=== PATIENT | female | born 1995 | race Caucasian/White ===

== ENCOUNTER 2016-04-27 09:37 | Emergency (ER) | payer OTHER ==
[~2016-04-27] VITALS: Ht 167.6 cm; Wt 128.8 kg
--- NOTE | 2016-04-27 10:35 | ED GI/GU/ABDOMINAL COMPLAINT ---
History of Present Illness General Chief Complaint: Female Urogenital Problems Stated Complaint: APPROX 5 WEEKS PREG, CRAMPING/SPOTTING Source: patient Exam Limitations: no limitations Vital Signs & Intake/Output Vital Signs & Intake/Output Vital Signs Date Time Temp Pulse Resp B/P Pulse O2 O2 Flow FiO2 Ox Delivery Rate 04/27 1339 98.8 83 18 132/69 100 Room Air 04/27 0942 98.9 107 20 136/72 100 Room Air Allergies Coded Allergies: MDX - PCN (penicillin) (PCN (PENICILLIN)) (HIVES 03/27/13) Triage Note: PT STATES APROX 5 WEEKS . STATES SHE HAS BEEN SPOTTING FOR THE PAST COUPLE DAYS. TODAY SHE HAD PAIN WITH SPOTTING. HAS A SCHEDULED OB APPT FOR SATURDAY. Triage Nurses Notes Reviewed? yes ? Y Is pt currently ? No HPI: This patient is a 21-year-old G1A0P0 female who presented to the emergency department today for evaluation of vaginal spotting. The patient reported that she took a home test and believes that she is approximately 5-6 weeks gestation. She has not had her initial visit with her TELEVISION HOST. She is scheduled to see Dr. Dahl on Saturday. The patient reported that she has been having some bilateral groin pain cramping. She reported that it is worse in the morning and gets up to a 7 out of 10. She reported that sometimes it subsides in the afternoon. Currently it is a 2 out of 10. She reported that it feels like, "a PERIOD Cramp." She reported that her last period was in February. The patient reported that she started having some vaginal spotting yesterday. She reported that she is only spotting a little bit and only has to use a panty liner. The patient reported some nausea. No vomiting, fevers, chills, chest pain, difficulty breathing, urinary burning, urgency, frequency, or blood in urine. (MANNIE PARRISH PA-C) Past History Travel History Traveled to [place] past 21 day No Medical History Any Pertinent Medical History? see below for history Surgical History Surgical History: non-contributory Psychosocial History What is your primary language Irish Tobacco Use: Never used ETOH Use: denies use Illicit Drug Use: denies illicit drug use Family History Hx Contributory? No (MANNIE PARRISH PA-C) Review of Systems Review of Systems Constitutional: Reports: no symptoms. EENTM: Reports: no symptoms. Respiratory: Reports: no symptoms. Cardiovascular: Reports: no symptoms. GI: Reports: see HPI. Genitourinary: Reports: see HPI. Musculoskeletal: Reports: no symptoms. Skin: Reports: no symptoms. Neurological/Psychological: Reports: no symptoms. All Other Systems: Reviewed and Negative (MANNIE PARRISH PA-C) Physical Exam Physical Exam Gastrointestinal: normal bowel sounds, soft, non-tender, no organomegaly, NO REBOUND OR GUARDING. nONDISTENDED. nO MASSES APPRECIATED Comments: Well-developed well-nourished person in no acute distress HEENT: Normal EENT exam, moist mucous membranes Neck: Supple, no lymphadenopathy Back: Normal gait. No CVA tenderness Cardiovascular: Regular rate and rhythm with no murmurs Respiratory: No respiratory distress. Speaking in full sentences Extremity: Normal and equal pulses Neuro: Alert oriented x3, cranial nerves II through XII grossly intact. Skin: No appreciable rash on exposed skin, skin is warm and dry. Psych: Mood and affect is normal Core Measures ACS in differential dx? No Severe Sepsis Present: No Septic Shock Present: No (MANNIE PARRISH PA-C) Progress Differential Diagnosis: appendicitis, biliary colic, bowel obstruction, colon cancer, cholecystitis, diverticulitis, ectopic , endometritis, gastritis, hepatitis, ischemic bowel, inflamm bowel dis, intrauterine , kidney stone, ovarian cyst, ovarian torsion, pancreatitis, PID/cervicitis, PUD/ GERD, threatened AB, UTI/pyelo Plan of Care: Orders Procedure Date/time Status PARTIAL THROMBOPLASTIN TIME 04/27 1013 Complete PROTHROMBIN TIME 04/27 1013 Complete HUMAN BETA HCG TITRE 04/27 1013 Complete COMPREHENSIVE METABOLIC PANEL 04/27 1013 Complete CBC WITHOUT DIFFERENTIAL 04/27 1013 Complete TYPE & SCREEN (NOT X-MATCH) 04/27 1013 Complete URINE 04/27 0946 Complete URINALYSIS 04/27 0946 Complete Laboratory Tests 04/27/16 1039: Anion Gap 11, Estimated GFR > 60, BUN/Creatinine Ratio 11.7, Glucose 82, Calcium 9.8, Total Bilirubin 0.7, AST 19, ALT 35, Alkaline Phosphatase 119, Total Protein 7.5, Albumin 4.1, Globulin 3.4, Albumin/Globulin Ratio 1.2, Beta HCG, Quant 86568.0, PT 13.5 H, INR 1.29 H, APTT 31, CBC w Diff NO MAN DIFF REQ, RBC 4.53, MCV 83.8, MCH 27.9, RDW 13.3, MPV 6.8 L, Gran % 74.0, Lymphocytes % 19.2 L, Monocytes % 5.1, Eosinophils % 1.3, Basophils % 0.4, Absolute Granulocytes 8.3 H, Absolute Lymphocytes 2.2, Absolute Monocytes 0.6, Absolute Eosinophils 0.1, Absolute Basophils 0, PUBS MCHC 33.3, Urine Color YEL, Urine Clarity CLEAR, Urine pH 6.0, Ur Specific [place] >= 1.030, Urine Protein NEG, Urine Ketones NEG , Urine Nitrite NEG, Urine Bilirubin NEG, Urine Urobilinogen 0.2, Ur Leukocyte Esterase NEG, Ur Microscopic EXAM NOT REQUIRED, Urine Hemoglobin NEG, Urine Glucose NEG, Urine Test POSITIVE Diagnostic Imaging: Viewed by Me: Ultrasound. Discussed w/RAD: Ultrasound. Radiology Impression: PATIENT: SOHAM GONG PRESENT AGE: 21 PATIENT ACCOUNT NO: [id number] : 96 LOCATION: [facility] ORDERING PHYSICIAN: MANNIE PARRISH PA-C SERVICE DATE: 04/27/16 EXAM TYPE: US - US-ECTOPIC DX EXAMINATION: US ECTOPIC DIAGNOSIS CLINICAL INFORMATION: Approximately 5 weeks gestation. Vaginal spotting. Assess for ectopic . COMPARISON: None TECHNIQUE: Transabdominal and transvaginal pelvic sonography was performed. FINDINGS: A single intrauterine is demonstrated. heart rate is 147 bpm. Yolk sac is demonstrated. The crown-rump length measures 0.92 cm, corresponding to a gestational age 7 weeks, 2 days (estimated date of delivery 12/12/2016). There is a small subchorionic hemorrhage adjacent to the gestational sac. The right ovary measures 2.7 x 1.6 x 1.8 cm. The left ovary measures 3.4 x 2.3 x 2.8 cm. No suspicious ovarian or adnexal lesion. Internal Doppler flow is demonstrated within the bilateral ovaries. No free fluid within the cul-de-sac. IMPRESSION: 1. Single live intrauterine . Estimated gestational age 7 weeks, 2 days. Estimated date of delivery 12/12/2016. 2. Small subchorionic hemorrhage adjacent to the gestational sac. DICTATED BY: TO SMITH MD DATE/TIME DICTATED:04/27/161235 COMPUTER INSTALLATION ENGINEER:DAYANA DATE/TIME TRANSCRIBED:1235 CONFIDENTIAL, DO NOT COPY WITHOUT APPROPRIATE AUTHORIZATION. < Electronically signed in Other Vendor System> SIGNED BY: TO SMITH MD 04/27/16 1240 Initial ED EKG: none Comments: 04/27/2016 12:51:15 PM: I was at the patient's bedside for reevaluation. She is currently resting comfortably on the stretcher and nontoxic appearing. Updated the patient on her laboratory and imaging results. Approximately 7 weeks and 2 days gestation with a small subchorionic hemorrhage noted. I have put out a page to this patient's TELEVISION HOST, Dr. Dahl to discuss these results. I counseled the patient on management for possible threatened based on her bleeding. Her that she should not engage in any strenuous activity or use any tampons over the next several days. She'll be following up with her TELEVISION HOST. 04/27/2016 1:51:36 PM: I spoke with Dr. Dahl who reported that she feels that the ultrasound is normal and the patient can proceed to follow-up with her in the office next week as previously scheduled. (MANNIE PARRISH PA-C) Departure Departure Disposition: HOME OR SELF CARE Condition: Stable Clinical Impression Primary Impression: Vaginal bleeding Referrals: NAGELA JERNIGAN MD (PCP/Family) Additional Instructions: Please avoid any strenuous activity or heavy lifting. Rest. Do not use any tampons. Please follow-up with your TELEVISION HOST as discussed. Return for any worsening symptoms or concerns. Departure Forms: Customer Survey General Discharge Information (MANNIE PARRISH PA-C) PA/REPORTING DEVELOPER Co-Sign Statement Statement: ED Attending supervision documentation- [] I saw and evaluated the patient. I have also reviewed all the pertinent lab results and diagnostic results. I agree with the findings and the plan of care as documented in the PA's/REPORTING DEVELOPER's documentation. [X] I have reviewed the ED Record and agree with the PA's/REPORTING DEVELOPER's documentation. [] Additions or exceptions (if any) to the PAs/REPORTING DEVELOPER's note and plan are summarized below: [] (SHEFALI BEVERLY,EMMA)
[2016-04-27 10:59] LABS: ABSOLUTE BASOPHIL COUNT 0 /CUMM (0.0-0.2); ABSOLUTE EOSINOPHIL COUNT 0.1 /CUMM (0.0-0.7); ABSOLUTE GRANULOCYTE CT 8.3 /CUMM (1.4-6.5); ABSOLUTE LYMPH COUNT 2.2 /CUMM (1.2-3.4); ABSOLUTE MONOCYTE COUNT 0.6 /CUMM (0.10-0.60); BASOPHIL % 0.4 % (0.0-2.0); EOSINOPHIL % 1.3 % (0-5); MEAN CORPUSCULAR HGB 27.9 PG (27.0-31.0); MEAN CORPUSCULAR HGB CONC 33.3 G/DL (33.0-37.0); MEAN CORPUSCULAR VOLUME 83.8 FL (81.0-99.0); MEAN PLATELET VOLUME 6.8 FL (7.4-10.4); PLATELET COUNT 484 /CUMM (130-400); RBC DISTRIBUTION WIDTH 13.3 % (11.5-14.5); RED BLOOD CELL CT 4.53 /CUMM (4.20-5.40); WHITE BLOOD CELL COUNT 11.3 /CUMM (4.8-10.8)
[2016-04-27 11:09] LABS: PT 13.5 SEC (9.4-12.5); PTT 31 SEC (25-37)
--- NOTE | 2016-04-27 12:43 | ULTRASOUND REPORT ---
EXAMINATION: US ECTOPIC DIAGNOSIS CLINICAL INFORMATION: Approximately 5 weeks gestation. Vaginal spotting. Assess for ectopic . COMPARISON: None TECHNIQUE: Transabdominal and transvaginal pelvic sonography was performed. FINDINGS: A single intrauterine is demonstrated. heart rate is 147 bpm. Yolk sac is demonstrated. The crown-rump length measures 0.92 cm, corresponding to a gestational age 7 weeks, 2 days (estimated date of delivery 12/12/2016). There is a small subchorionic hemorrhage adjacent to the gestational sac. The right ovary measures 2.7 x 1.6 x 1.8 cm. The left ovary measures 3.4 x 2.3 x 2.8 cm. No suspicious ovarian or adnexal lesion. Internal Doppler flow is demonstrated within the bilateral ovaries. No free fluid within the cul-de-sac. IMPRESSION: 1. Single live intrauterine . Estimated gestational age 7 weeks, 2 days. Estimated date of delivery 12/12/2016. 2. Small subchorionic hemorrhage adjacent to the gestational sac.
[2016-04-27 13:39] VITALS: BP 132/69
== END 2016-04-27 13:50 ==
LOC: ERH 09:37
PROVIDERS: Physician Assistant
DX: O26.851 Spotting complicating pregnancy, first trimester (principal); Z3A.01 Less than 8 weeks gestation of pregnancy
CPT/HCPCS: 81003; 81025

== ENCOUNTER 2016-06-23 14:46 | Emergency (ER) | payer OTHER ==
[~2016-06-23] VITALS: Ht 167.6 cm; Wt 122.9 kg
--- NOTE | 2016-06-23 15:11 | ED GI/GU/ABDOMINAL COMPLAINT ---
History of Present Illness General Chief Complaint: Female Urogenital Problems Stated Complaint: 16 WEEKS PRGENANT, BLEEDING AND CRAMPING X 1DAY Source: patient, family Exam Limitations: no limitations Vital Signs & Intake/Output Vital Signs & Intake/Output Vital Signs Date Time Temp Pulse Resp B/P Pulse O2 O2 Flow FiO2 Ox Delivery Rate 06/23 1452 99.7 111 20 157/100 99 Room Air Allergies Coded Allergies: MDX - PCN (penicillin) (PCN (PENICILLIN)) (HIVES 03/27/13) Triage Note: PT TO ED C/O ABD CRAMPING AND VAGINAL BLEEDING SINCE YESTERDAY. PT IS 16 WEEKS , PT OF DR JAIMES. PT IS . Triage Nurses Notes Reviewed? yes ? Y Is pt currently ? No HPI: 16 weeks increasing vaginal bleeding since yesterday. Crampy abdominal pain. There've been no problems during this . Patient has a known IUP. The cramping is constant and she rates it as 2 out of 10. There is no radiation. There are no aggravating or mitigating factors. There are no clots. Patient states that she notices some bright red blood in the toilet. Past History Travel History Traveled to [place] past 21 day No Medical History Any Pertinent Medical History? see below for history Psychiatric: anxiety Surgical History Surgical History: non-contributory Psychosocial History What is your primary language Yoruba Tobacco Use: Never used ETOH Use: denies use Illicit Drug Use: denies illicit drug use Family History Hx Contributory? No Review of Systems Review of Systems Constitutional: Reports: no symptoms. EENTM: Reports: no symptoms. Respiratory: Reports: no symptoms. Cardiovascular: Reports: no symptoms. GI: Reports: no symptoms. Genitourinary: Reports: see HPI. Musculoskeletal: Reports: no symptoms. Skin: Reports: no symptoms. Neurological/Psychological: Reports: no symptoms. Hematologic/Endocrine: Reports: no symptoms. Immunologic/Allergic: Reports: no symptoms. All Other Systems: Reviewed and Negative Physical Exam Physical Exam General Appearance: well developed/nourished, alert, awake, anxious, mild distress Head: atraumatic, normal appearance Eyes: Bilateral: PERRL, EOMI. Ears, Nose, Throat, Mouth: hearing grossly normal, moist mucous membrane Neck: normal inspection, supple, full range of motion Respiratory: normal breath sounds, chest non-tender, no respiratory distress, lungs clear Cardiovascular: regular rate/rhythm, normal peripheral pulses Gastrointestinal: normal bowel sounds, soft, non-tender Back: normal inspection, normal range of motion Extremities: normal range of motion Neurologic/Psych: no motor/sensory deficits, awake, alert, oriented x 3, normal mood/affect Core Measures ACS in differential dx? No Severe Sepsis Present: No Septic Shock Present: No Progress Differential Diagnosis: threatened AB, UTI/pyelo Plan of Care: Orders Procedure Date/time Status URINALYSIS 06/23 1448 Complete HUMAN BETA HCG TITRE 06/23 1448 Active COMPREHENSIVE METABOLIC PANEL 06/23 1448 Active CBC WITHOUT DIFFERENTIAL 06/23 1448 Complete RHOGAM WORK-UP 06/23 1448 Active Laboratory Tests 06/23/16 1520: Anion Gap 13, Estimated GFR > 60, BUN/Creatinine Ratio 16.0, Glucose 100 H, Calcium 9.8, Total Bilirubin 0.4, AST 24, ALT 48, Alkaline Phosphatase 119, Total Protein 7.4, Albumin 3.9, Globulin 3.5, Albumin/Globulin Ratio 1.1, Beta HCG, Quant Pending, CBC w Diff NO MAN DIFF REQ, RBC 4.23, MCV 84.2, MCH 28.2, RDW 13.3, MPV 6.9 L, Gran % 74.6, Lymphocytes % 20.1 L, Monocytes % 3.5, Eosinophils % 1.5, Basophils % 0.3, Absolute Granulocytes 9.7 H, Absolute Lymphocytes 2.6, Absolute Monocytes 0.5, Absolute Eosinophils 0.2, Absolute Basophils 0, PUBS MCHC 33.5 06/23/16 1505: Urinalysis LIGHT H, Urine Color YEL, Urine Clarity HAZY H, Urine pH 5.5, Ur Specific [place] >= 1.030, Urine Protein NEG, Urine Ketones TRACE H, Urine Nitrite NEG, Urine Bilirubin NEG, Urine Urobilinogen 0.2, Ur Leukocyte Esterase NEG, Ur Microscopic SEDIMENT EXAMINED, Urine RBC 1-3, Urine WBC 1-3 H, Ur Epithelial Cells PACKD H, Urine Crystals 1+ CA OX H, Urine Bacteria FEW H, Urine Mucus RARE, Urine Hemoglobin NEG, Urine Glucose NEG Diagnostic Imaging: Viewed by Me: Ultrasound. Discussed w/RAD: Ultrasound. Radiology Impression: PATIENT: SOAHM GONG PRESENT AGE: 21 PATIENT ACCOUNT NO: [id number] : 96 LOCATION: [facility] ORDERING PHYSICIAN: ORQUIDEA FUNES SERVICE DATE: 06/23/16 EXAM TYPE: US - US- VIABILITY EXAMINATION: US , VIABILITY CLINICAL INFORMATION: 16 weeks , bleeding, abdominal cramping COMPARISON : 04/27/2016 ultrasound TECHNIQUE: Real-time ultrasound of was performed accessing grayscale appearance and color Doppler flow. FINDINGS: There is a single intrauterine uterine . The gestational age based on CRL of 8.98 cm, HC of 11.03 cm, FL of 1.80 cm is 15 weeks 3 days +/- 1 week 2 day. The EDC is 12/13/2016. The gestational age based on LMP of 03/05/2016 is 15 weeks 5 days with estimated due date of 12/10/2016. The heart rate is present, at 153 beats per minutes. The movement is within normal limits. Fundal placenta without previa. No retroplacental hematoma seen. The cervix is closed. There is normal amniotic fluid. IMPRESSION: Single live intrauterine with gestational age of 15 weeks 2 days and heart rate of 153 beats per minutes. DICTATED BY: LULU ANDREWS MD DATE/TIME DICTATED:06/23/161557 MANAGER SALES TRAINING:DAYANA DATE/TIME TRANSCRIBED:06/23/161557 CONFIDENTIAL, DO NOT COPY WITHOUT APPROPRIATE AUTHORIZATION. <Electronically signed in Other Vendor System> SIGNED BY: LULU ANDREWS MD 06/23/16 1611 Initial ED EKG: none Departure Departure Disposition: HOME OR SELF CARE Condition: Stable Clinical Impression Primary Impression: Threatened Referrals: THEODORE BEVERLY,ANGELA GREENFIELD MD (PCP/Family) Additional Instructions: FOLLOW UP WITH DR. JAIMES NO VAGINAL INTERCOURSE AND NO HEAVY LIFTING UNTIL CLEARED BY DR. JAIMES RETURN FOR ANY CONCERNS Departure Forms: Customer Survey General Discharge Information
[2016-06-23 15:41] LABS: ABSOLUTE BASOPHIL COUNT 0 /CUMM (0.0-0.2); ABSOLUTE EOSINOPHIL COUNT 0.2 /CUMM (0.0-0.7); ABSOLUTE GRANULOCYTE CT 9.7 /CUMM (1.4-6.5); ABSOLUTE LYMPH COUNT 2.6 /CUMM (1.2-3.4); ABSOLUTE MONOCYTE COUNT 0.5 /CUMM (0.10-0.60); BASOPHIL % 0.3 % (0.0-2.0); EOSINOPHIL % 1.5 % (0-5); GRANULOCYTE % 74.6 % (42.2-75.2); HEMATOCRIT 35.6 % (37-47); MEAN CORPUSCULAR HGB 28.2 PG (27.0-31.0); MEAN CORPUSCULAR HGB CONC 33.5 G/DL (33.0-37.0); MEAN CORPUSCULAR VOLUME 84.2 FL (81.0-99.0); MEAN PLATELET VOLUME 6.9 FL (7.4-10.4); PLATELET COUNT 430 /CUMM (130-400); RBC DISTRIBUTION WIDTH 13.3 % (11.5-14.5); RED BLOOD CELL CT 4.23 /CUMM (4.20-5.40)
--- NOTE | 2016-06-23 16:11 | ULTRASOUND REPORT ---
EXAMINATION: US , VIABILITY CLINICAL INFORMATION: 16 weeks , bleeding, abdominal cramping COMPARISON: 04/27/2016 ultrasound TECHNIQUE: Real-time ultrasound of was performed accessing grayscale appearance and color Doppler flow. FINDINGS: There is a single intrauterine uterine . The gestational age based on CRL of 8.98 cm, HC of 11.03 cm, FL of 1.80 cm is 15 weeks 3 days +/- 1 week 2 day. The EDC is 12/13/2016. The gestational age based on LMP of 03/05/2016 is 15 weeks 5 days with estimated due date of 12/10/2016. The heart rate is present, at 153 beats per minutes. The movement is within normal limits. Fundal placenta without previa. No retroplacental hematoma seen. The cervix is closed. There is normal amniotic fluid. IMPRESSION: Single live intrauterine with gestational age of 15 weeks 2 days and heart rate of 153 beats per minutes.
[2016-06-23 16:32] VITALS: BP 134/80
== END 2016-06-23 16:51 ==
LOC: ERH 14:46
PROVIDERS: Physician Assistant
DX: O20.0 Threatened abortion (principal)
CPT/HCPCS: 81001